=== PATIENT | female | born 1945 | race Caucasian/White ===

== ENCOUNTER 2021-08-10 05:57 | Outpatient (CLI) | payer MEDICARE, OTHER ==
[~2021-08-10] VITALS: Ht 157.5 cm; Wt 59.5 kg
[2021-08-11] MEDS ORDERED: PRAV20TA3 PO (08:25)
[2021-08-11] MEDS ORDERED: ASPI-1238 PO (08:25)
== END 2021-08-11 08:36 | disposition home or self-care (01) ==
LOC: PREOP 05:57
PROVIDERS: ATTEND Specialist
DX: Z01.818 Encounter for other preprocedural examination (principal)

== ENCOUNTER 2021-08-14 05:59 | Day surgery (SDC) | payer MEDICARE, OTHER ==
[~2021-08-14] VITALS: Ht 157.3 cm; Wt 59.5 kg
[~2021-08-14 05:59] MED LIST: ASPI-1238 PO; PRAV20TA3 PO
[2021-08-14] MEDS ORDERED: MOXIFLOXACIN OPHTH SOLN 5 MG/ML 0.3 ML SYRINGE OP ONE (06:15)
[2021-08-14] MEDS ORDERED: LIDOCAINE PF 1% 2 ML VIAL IR PRN (06:15)
[2021-08-14] MEDS ORDERED: TIMOLOL MALEATE 0.5% 5 ML (TIMOPTIC) BTL OU PRN (06:15)
[2021-08-14] MEDS ORDERED: POVIDONE (BETADINE) OPHTH SOLN 5% 30 ML OP ONE (06:15)
[2021-08-14] MEDS: TETRACAINE 0.5% OPHTH SOLN 4 ML BTL (SINGLE DOSE ONLY) OU PRN ×4 (06:19→06:38)
[2021-08-14] MEDS: TROPICAMIDE 1% OPH SOLN (MYDRIACYL) 15 ML BTL OP SCH ×3 (06:28→06:38)
[2021-08-14] MEDS: PHENYLEPHRINE 10% OPHTH (NEO-SYN) 5 ML BTL OU SCH ×3 (06:28→06:38)
[2021-08-14 06:30] VITALS: BP 133/56
--- NOTE | 2021-08-14 07:05 | Ophthalmologist Pre-Op Note ---
Pre-Operative Progress Note H&P Reviewed The H&P was reviewed, patient examined and no changes noted. Date H&P Reviewed: Aug 14, 2021 Time H&P Reviewed: 07:05 Pre-Op Dx Cataract, Left Eye SHANELL BRAY MD Aug 14, 2021 07:05
[2021-08-14] MEDS ORDERED: MIDAZOLAM 2 MG/2 ML (VERSED) VIAL ONE (07:08)
--- NOTE | 2021-08-14 07:26 | Ophthalmology Operative Report ---
Cataract removal/placement IOL PREOPERATIVE DIAGNOSIS: Cataract Left Eye POSTOPERATIVE DIAGNOSIS: Cataract Left Eye PROCEDURE: Cataract removal and placement of posterior chamber implant, left eye SURGEON: Clemente Bray ANESTHESIA: Topical with sedation COMPLICATIONS: None ESTIMATED BLOOD LOSS: Minimal DESCRIPTION OF PROCEDURE: After proper informed consent was obtained, the patient, a 76 female, was taken to the Operating Room and the left eye was anesthetized with tetracaine. The left eye was then prepped and draped in the usual manner. A wire lid speculum was placed. A paracentesis was made at the left hand position. Preservative free lidocaine was injected into the anterior chamber followed by viscoelastic. A clear corneal incision was made in the temporal position. A capsulorrhexis was preformed and the central nuclear and cortical material were removed. The posterior capsule was polished and an Adam 25.0 AU00T0 was placed into the capsular bag. The residual viscoelastic was aspirated and balanced saline solution was injected into the anterior chamber. Moxifloxacin was injected into the anterior chamber. The wound was checked and found to be water tight. The patient tolerated the procedure well without complications. CLEMENTE BRAY MD Aug 14, 2021 07:26
[2021-08-14 07:30] VITALS: BP 127/52
[2021-08-14] MEDS ORDERED: acetaZOLAMIDE ER 500 MG CAP (DIAMOX SEQUELS) PO ONE (07:30)
--- NOTE | 2021-08-14 13:44 | Anesthesia-General Post-Op ---
MAC Patient Condition Mental Status/LOC: Same as Preop Cardiovascular: Satisfactory Nausea/Vomiting: Absent Respiratory: Satisfactory Pain: Controlled Complications: Absent Post Op Complications Complications None Follow Up Care/Instructions Patient Instructions None needed. Anesthesiology Discharge Order Discharge Order Patient is doing well, no complaints, stable vital signs, no apparent adverse anesthesia problems. No complications reported per nursing. FIDE FOUNTAIN CRNA Aug 14, 2021 13:44
== END 2021-08-14 07:30 ==
LOC: SDC 05:59
PROVIDERS: ATTEND Specialist
DX: H25.12 Age-related nuclear cataract, left eye (principal); E78.00 Pure hypercholesterolemia, unspecified; Z79.82 Long term (current) use of aspirin; Z79.899 Other long term (current) drug therapy; Z87.891 Personal history of nicotine dependence
CPT/HCPCS: 66984; V2632

== ENCOUNTER 2021-08-27 07:45 | Outpatient (CLI) | payer MEDICARE, OTHER ==
[~2021-08-27] VITALS: Ht 157.3 cm; Wt 59.5 kg
== END 2021-09-02 15:20 | disposition home or self-care (01) ==
LOC: PREOP 07:45
PROVIDERS: ATTEND Specialist
DX: Z01.818 Encounter for other preprocedural examination (principal)

== ENCOUNTER 2021-09-04 09:15 | Day surgery (SDC) | payer MEDICARE, OTHER ==
[~2021-09-04] VITALS: Ht 157.3 cm; Wt 59.5 kg
[2021-09-04] MEDS: TETRACAINE 0.5% OPHTH SOLN 4 ML BTL (SINGLE DOSE ONLY) OU PRN ×4 (09:25→09:42)
[2021-09-04 09:26] VITALS: BP 107/51
[2021-09-04] MEDS ORDERED: TIMOLOL MALEATE 0.5% 5 ML (TIMOPTIC) BTL OU PRN (09:30)
[2021-09-04] MEDS ORDERED: MOXIFLOXACIN OPHTH SOLN 5 MG/ML 0.3 ML SYRINGE OP ONE (09:30)
[2021-09-04] MEDS ORDERED: POVIDONE (BETADINE) OPHTH SOLN 5% 30 ML OP ONE (09:30)
[2021-09-04] MEDS ORDERED: LIDOCAINE PF 1% 2 ML VIAL IR PRN (09:30)
[2021-09-04] MEDS: TROPICAMIDE 1% OPH SOLN (MYDRIACYL) 15 ML BTL OP SCH ×3 (09:32→09:42)
[2021-09-04] MEDS: PHENYLEPHRINE 10% OPHTH (NEO-SYN) 5 ML BTL OU SCH ×3 (09:32→09:42)
--- NOTE | 2021-09-04 09:54 | Ophthalmologist Pre-Op Note ---
Pre-Operative Progress Note H&P Reviewed The H&P was reviewed, patient examined and no changes noted. Date H&P Reviewed: Sep 04, 2021 Time H&P Reviewed: 09:54 Pre-Op Dx Cataract, Right Eye SHANELL BRAY MD Sep 04, 2021 09:54
[2021-09-04] MEDS ORDERED: MIDAZOLAM 2 MG/2 ML (VERSED) VIAL ONE (10:00)
--- NOTE | 2021-09-04 10:25 | Ophthalmology Operative Report ---
Cataract removal/placement IOL PREOPERATIVE DIAGNOSIS: Cataract Right Eye POSTOPERATIVE DIAGNOSIS: Cataract Right Eye PROCEDURE: Cataract removal and placement of posterior chamber implant, right eye SURGEON: Clemente Bray ANESTHESIA: Topical with sedation COMPLICATIONS: None ESTIMATED BLOOD LOSS: Minimal DESCRIPTION OF PROCEDURE: After proper informed consent was obtained, the patient, a 76 female, was taken to the Operating Room and the right eye was anesthetized with tetracaine. The right eye was then prepped and draped in the usual manner. A wire lid speculum was placed. A paracentesis was made at the left hand position. Preservative free lidocaine was injected into the anterior chamber followed by viscoelastic. A clear corneal incision was made in the temporal position. A capsulorrhexis was preformed and the central nuclear and cortical material were removed. The posterior capsule was polished and Adam 23.0 AU00T0 IOL was placed into the capsular bag. The residual viscoelastic was aspirated and balanced saline solution was injected into the anterior chamber. Moxifloxacin was injected into the anterior chamber. The wound was checked and found to be water tight. The patient tolerated the procedure well without complications. CLEMENTE BRAY MD Sep 04, 2021 10:25
--- NOTE | 2021-09-04 10:32 | Anesthesia-General Post-Op ---
MAC Patient Condition Mental Status/LOC: Same as Preop Cardiovascular: Satisfactory Nausea/Vomiting: Absent Respiratory: Satisfactory Pain: Controlled Complications: Absent Post Op Complications Complications None Follow Up Care/Instructions Patient Instructions None needed. Anesthesiology Discharge Order Discharge Order Patient is doing well, no complaints, stable vital signs, no apparent adverse anesthesia problems. No complications reported per nursing. JAMAAL ISLAS CRNA Sep 04, 2021 10:31
[2021-09-04 10:35] VITALS: BP 109/60
[2021-09-04] MEDS ORDERED: acetaZOLAMIDE ER 500 MG CAP (DIAMOX SEQUELS) PO ONE (11:00)
== END 2021-09-04 10:35 | disposition home or self-care (01) ==
LOC: SDC 09:15
PROVIDERS: ATTEND Specialist
DX: H25.811 Combined forms of age-related cataract, right eye (principal); E78.5 Hyperlipidemia, unspecified; E78.00 Pure hypercholesterolemia, unspecified; Z79.899 Other long term (current) drug therapy; Z87.891 Personal history of nicotine dependence; Z79.82 Long term (current) use of aspirin; Z83.3 Family history of diabetes mellitus
CPT/HCPCS: 66984; V2632

== ENCOUNTER → 2022-12-23 | Outpatient (CLI) | payer MEDICARE, OTHER ==
--- NOTE | 2022-12-23 14:50 | Diagnostic Imaging Report ---
MRI RT LOWER EXT JOINT W/O TECHNIQUE: Multiplanar, multisequence MR imaging of the right knee was performed without contrast. COMPARISON: None available. INDICATION: Right knee pain FINDINGS: MENISCI Medial meniscus: Intact. Lateral meniscus: Degenerative free edge fraying/truncation throughout the lateral meniscus. LIGAMENTS ACL: Intact. PCL: Intact. MCL: Intact. LCL: The lateral collateral ligamentous complex is intact. EXTENSOR MECHANISM The extensor mechanism is intact. CARTILAGE Medial compartment: Medial compartment articular cartilage is well preserved without focal high-grade chondromalacia. Lateral compartment: Chondral thinning without sites of full-thickness articular cartilage loss. Patellofemoral compartment: Linear focus of fissuring in the medial patella facet has a subchondral bone marrow edema. BONE Nondisplaced trabecular fracture involving the proximal tibial metaphysis. The fracture line is hypointense along the medial aspect and becomes more hyperintense suggestive of a subacute fracture. SOFT TISSUE No knee joint effusion. Small Morocho's cyst. IMPRESSION: 1. Subacute nondisplaced fracture in the proximal medial and lateral tibial plateaus. No articular surface depression. 2. Mild degenerative free edge fraying in the lateral meniscus. Dictated by: Dictated on workstation # [id number]
== END ==
LOC: RAD 12:32
PROVIDERS: ATTEND Family Medicine
DX: S82.144A Nondisplaced bicondylar fracture of right tibia, initial encounter for closed fracture (principal); M17.11 Unilateral primary osteoarthritis, right knee; X58.XXXA Exposure to other specified factors, initial encounter
CPT/HCPCS: 73721

== ENCOUNTER → 2023-01-25 | Outpatient (CLI) | payer MEDICARE, OTHER ==
--- NOTE | 2023-01-25 17:39 | Diagnostic Imaging Report ---
INDICATION: Postmenopausal female. Previous hip or vertebral fracture. COMPARISON: None FINDINGS: AP Spine L2-L4: [BMD (g/cm2): 1.016] [T-Score: -1.5] [Z-Score: 0.4] [BMD Previous: NA] [BMD % Change: NA] LT Hip Neck: [BMD (g/cm2): NA] [T-Score: NA] [Z-Score: NA] LT Hip Total: [BMD (g/cm2):NA] [T-Score:NA] [Z-Score: NA] [BMD Previous: NA] [BMD % Change: NA] RT Hip Neck: [BMD (g/cm2):0.706] [T-Score:-2.4] [Z-Score:-0.3] RT Hip Total: [BMD (g/cm2):0.836] [T-score:-1.4] [Z-Score:0.6] [BMD Previous:NA] [BMD % Change:NA] *Indicates significant change from prior examination based on 95% confidence level. World Health Organization criteria for BMD interpretation classify patients as Normal (T-score at or above -1.0), Osteopenic (T-score between -1.0 and -2.5) or Osteoporotic (T-score at or below -2.5). LIMITATIONS AND MODIFICATION: Degenerative change and curvature in the lumbar spine likely falsely elevates bone density. FRACTURE RISK (FRAX SCORE): The ten year probability of (%): Major Osteoporotic Fracture: [24.2] Hip Fracture: [7.4] IMPRESSION: 1. Osteopenia (Low bone mass). 2. Baseline examination. 3. See below National Osteoporosis Foundation guidelines on when to potentially initiate pharmacologic therapy. Based on the National Osteoporosis Foundation Guidelines, pharmacologic treatment should be initiated in any of the following, unless clinical conditions suggest otherwise: * Any patient with prior fragility fracture of the hip or vertebrae. A spine fracture indicates 5X risk for subsequent spine fracture and 2X risk for subsequent hip fracture. * Osteoporosis (T-score <-2.5). * Postmenopausal women and men age 50 and older with low bone mass/osteopenia (T-score between -1.0 and -2.5) by DXA and 10-year major osteoporotic fracture greater than 20% or a 10-year probability of hip fracture greater than 3%. These fracture risks are supplied above in the FRAX score, if applicable. * Clinician judgement and/or patient preferences may indicate treatment for people with 10-year fracture probabilities above or below these levels. Dictated by: Dictated on workstation # [id number]
== END ==
LOC: RAD 09:23
PROVIDERS: ATTEND Orthopaedic Surgery
DX: M80.08XA Age-related osteoporosis with current pathological fracture, vertebra(e), initial encounter for fracture (principal); M85.80 Other specified disorders of bone density and structure, unspecified site; Z78.0 Asymptomatic menopausal state
CPT/HCPCS: 77080